=== PATIENT | female | born 1940 | race Hispanic/Latino ===

== ENCOUNTER 2017-12-28 10:24 | Emergency (ER) | payer MEDICARE ==
[~2017-12-28 10:24] MED LIST: GLIP5TAB11 PO; METF-526 PO
[2017-12-28] MEDS ORDERED: ACETAMINOPHEN 325 MG TAB ONE (10:46)
[2017-12-28 11:23] LABS: BASOPHILS % (AUTO) 0.7 % (0.0-5.0); EOSINOPHILS % (AUTO) 0.7 % (0.0-8.0); HEMATOCRIT 39.7 % (36-48); LYMPHOCYTES % (AUTO) 21.7 % (21.0-51.0); MEAN CORPUSCULAR HGB CONC 33.8 g/dL (32.0-36.0); MEAN CORPUSCULAR VOLUME 85.7 fL (79-99); MONOCYTES % (AUTO) 7.6 % (3.0-13.0); NEUTROPHILS % (AUTO) 69.3 % (40.0-77.0); PLATELET COUNT (AUTO) 307 K/uL (130-400); RED BLOOD CELL COUNT(AUTO) 4.64 MIL/uL (4.00-5.50); WHITE BLOOD COUNT (AUTO) 9.2 K/uL (4.8-10.8)
[2017-12-28 11:39] LABS: CREATININE 0.7 mg/dL (0.5-1.5); POTASSIUM 4.7 mmol/L (3.5-5.1)
[2017-12-28 12:29] LABS: APPEARANCE,URINE Clear (CLEAR); BILIRUBIN,URINE Negative (NEGATIVE); COLOR,URINE Yellow (YELLOW); GLUCOSE, URINE (UA) TRACE mg/dL (NEGATIVE); KETONES,URINE Negative (NEGATIVE); LEUKOCYTE ESTERASE ,URINE Large (NEGATIVE); NITRATE,URINE Positive (NEGATIVE); OCCULT BLOOD,URINE Negative (NEGATIVE); PH,URINE 5.5 (5.0-8.0); PROTEIN,URINE Negative (NEGATIVE); UROBILINOGEN,URINE 0.2 mg/dL (0.2-1.0)
[2017-12-28 12:57] LABS: BACTERIA,URINE Many /HPF (None Seen); RBC,URINE 0-1 /HPF (0-1); SQUAMOUS EPITHELIAL CELL,UR Rare /HPF (0-2)
[2017-12-28] MEDS ORDERED: CEFTRIAXONE SODIUM 1 GM ONE (13:58)
[2017-12-28] MEDS ORDERED: SODIUM CHLORIDE 0.9% 50 ML IV ONE (13:59)
[2017-12-28] MEDS ORDERED: HYDROCODONE/ACETAMINOPHEN 5/325 MG TAB ONE (13:59)
== END 2017-12-28 14:36 | disposition home or self-care (01) ==
LOC: EDH 10:24
DX: S16.1XXA Strain of muscle, fascia and tendon at neck level, initial encounter (principal); S00.83XA Contusion of other part of head, initial encounter; N39.0 Urinary tract infection, site not specified; E11.9 Type 2 diabetes mellitus without complications; Z90.710 Acquired absence of both cervix and uterus; Z88.7 Allergy status to serum and vaccine; W18.39XA Other fall on same level, initial encounter; Y93.89 Activity, other specified; Y92.89 Other specified places as the place of occurrence of the external cause; Y99.8 Other external cause status
CPT/HCPCS: 36415; 70450; 72125; 80048; 81001; 85025; 87077; 87088; 87186; 87804 ×2; 96374; 99285; J0696

== ENCOUNTER 2018-08-05 16:45 | Emergency (ER) | payer MEDICARE ==
[2018-08-05 17:41] LABS: BASOPHILS % (AUTO) 0.8 % (0.0-5.0); EOSINOPHILS % (AUTO) 0.9 % (0.0-8.0); HEMATOCRIT 35.1 % (36-48); MEAN CORPUSCULAR HEMOGLOBIN 29.2 pg (27.0-33.0); MEAN CORPUSCULAR HGB CONC 33.4 g/dL (32.0-36.0); MEAN CORPUSCULAR VOLUME 87.5 fL (79-99); MONOCYTES % (AUTO) 9.1 % (3.0-13.0); NEUTROPHILS % (AUTO) 67.2 % (40.0-77.0); PLATELET COUNT (AUTO) 341 K/uL (130-400); RED BLOOD CELL COUNT(AUTO) 4.01 MIL/uL (4.00-5.50); RED CELL DISTRIBUTION WIDTH 13.4 % (11.0-15.5); WHITE BLOOD COUNT (AUTO) 9.2 K/uL (4.8-10.8)
[2018-08-05 18:16] LABS: CREATININE 0.8 mg/dL (0.5-1.5); POTASSIUM 3.7 mmol/L (3.5-5.1)
[2018-08-05] MEDS ORDERED: KETOROLAC TROMETHAMINE 15MG/ML ONE (18:18)
[2018-08-05] MEDS ORDERED: CEFTRIAXONE SODIUM 1 GM ONE (18:18)
[2018-08-05] MEDS ORDERED: ACETAMINOPHEN 325 MG TAB ONE (18:18)
[2018-08-05] MEDS ORDERED: SODIUM CHLORIDE 0.9% 1000ML 1,000 ML IV ONE (18:19)
[2018-08-05 18:21] LABS: ALBUMIN 3.4 g/dL (3.5-5.0); BILIRUBIN,TOTAL 0.2 mg/dL (0.2-1.0); TOTAL PROTEIN, SERUM 7.7 g/dL (6.0-8.3)
[2018-08-05 19:17] LABS: APPEARANCE,URINE SL CLOUDY (CLEAR); BILIRUBIN,URINE NEGATIVE (NEGATIVE); COLOR,URINE YELLOW (YELLOW); GLUCOSE, URINE (UA) 500 mg/dL (NEGATIVE); KETONES,URINE NEGATIVE (NEGATIVE); LEUKOCYTE ESTERASE ,URINE LARGE (NEGATIVE); NITRATE,URINE POSITIVE (NEGATIVE); OCCULT BLOOD,URINE TRACE-INTACT (NEGATIVE); PROTEIN,URINE NEGATIVE (NEGATIVE); UROBILINOGEN,URINE 0.2 mg/dL (0.2-1.0)
[2018-08-05 19:30] LABS: BACTERIA,URINE Few /HPF (None Seen); MUCUS,URINE Few LPF (None Seen); SQUAMOUS EPITHELIAL CELL,UR None Seen /HPF (0-2); WBC,URINE 51-100 /HPF (0-1)
[2018-08-11] MEDS ORDERED: METF-446 PO (00:16)
[2018-08-11] MEDS ORDERED: IBUP-2070 PO (00:16)
[2018-08-11] MEDS ORDERED: LEVO750T46 PO (00:16)
[2018-08-11] MEDS ORDERED: MECL-111 PO (00:16)
[2018-08-11] MEDS ORDERED: LEVO137T2 PO (00:16)
[2018-08-11] MEDS ORDERED: LEVO5TAB13 PO (00:16)
== END 2018-08-05 22:20 | disposition home or self-care (01) ==
LOC: EDH 16:45
DX: N10 Acute pyelonephritis (principal); M54.2 Cervicalgia; G89.29 Other chronic pain; E11.9 Type 2 diabetes mellitus without complications; Z90.710 Acquired absence of both cervix and uterus; Z88.7 Allergy status to serum and vaccine
CPT/HCPCS: 36415; 80053; 81001; 83605 ×2; 85025; 87040 ×2; 87077; 87088; 87186; 93005; 96374; 96375; 99285; J0696; J1885; J7030

== ENCOUNTER 2019-12-30 19:17 | Inpatient (IN) | payer MEDICARE ==
[~2019-12-30] VITALS: Ht 160 cm; Wt 70.8 kg
[~2019-12-30 19:17] MED LIST changes: -GLIP5TAB11 PO; +IBUP-2070 PO; +LEVO137T2 PO; +LEVO5TAB13 PO; +LEVO750T46 PO; +MECL-160 PO; +METF-446 PO; -METF-526 PO
[2019-12-30] MEDS ORDERED: ONDANSETRON HCL 4 MG/2 ML VIAL ONE (19:54)
[2019-12-30 20:22] LABS: BASOPHILS % (AUTO) 0.2 % (0.0-5.0); EOSINOPHILS % (AUTO) 0.1 % (0.0-8.0); HEMATOCRIT 35.9 % (36-48); LYMPHOCYTES % (AUTO) 10.3 % (21.0-51.0); MEAN CORPUSCULAR HEMOGLOBIN 27.5 pg (27.0-33.0); MEAN CORPUSCULAR HGB CONC 32.6 g/dL (32.0-36.0); MEAN CORPUSCULAR VOLUME 84.3 fL (79-99); MONOCYTES % (AUTO) 6.6 % (3.0-13.0); NEUTROPHILS % (AUTO) 82.3 % (40.0-77.0); PLATELET COUNT (AUTO) 318 K/uL (130-400); RED BLOOD CELL COUNT(AUTO) 4.26 MIL/uL (4.00-5.50); RED CELL DISTRIBUTION WIDTH 14.2 % (11.0-15.5); WHITE BLOOD COUNT (AUTO) 15.4 K/uL (4.8-10.8)
[2019-12-30] MEDS ORDERED: CEFTRIAXONE SODIUM 1 GM ONE (20:34)
[2019-12-30] MEDS ORDERED: ACETAMINOPHEN 325 MG TAB ONE (20:35)
[2019-12-30] MEDS ORDERED: SODIUM CHLORIDE 0.9% 1000ML 1,000 ML IV ONE (20:35)
[2019-12-30 20:41] LABS: CREATININE 0.9 mg/dL (0.5-1.5); POTASSIUM 3.7 mmol/L (3.5-5.1)
[2019-12-30 20:45] LABS: PARTIAL THROMBOPLASTIN TIME 26.8 SEC (26.3-35.5); PROTHROMBIN TIME 10.8 SEC (9.6-11.6)
[2019-12-30 20:46] LABS: ALBUMIN 3.8 g/dL (3.5-5.0); BILIRUBIN,TOTAL 0.3 mg/dL (0.2-1.0); CRP QUANTITATIVE 124.2 mg/L (0.00-9.0); TOTAL PROTEIN, SERUM 8.8 g/dL (6.0-8.3)
[2019-12-30 21:06] LABS: APPEARANCE,URINE Clear (CLEAR); BILIRUBIN,URINE Negative (NEGATIVE); COLOR,URINE Yellow (YELLOW); GLUCOSE, URINE (UA) 250 mg/dL (NEGATIVE); KETONES,URINE Trace mg/dL (NEGATIVE); LEUKOCYTE ESTERASE ,URINE Small (NEGATIVE); NITRATE,URINE Negative (NEGATIVE); OCCULT BLOOD,URINE Negative (NEGATIVE); PROTEIN,URINE POS 2+ mg/dL (NEGATIVE); UROBILINOGEN,URINE 0.2 mg/dL (0.2-1.0)
[2019-12-30 21:24] LABS: BACTERIA,URINE Rare /HPF (None Seen); RBC,URINE None Seen /HPF (0-1); SQUAMOUS EPITHELIAL CELL,UR None Seen /HPF (0-2)
[2019-12-30 21:31] LABS: ERYTHROCYTE SEDIMENTATION RATE 38 MM/HR (0-30); FERRITIN 31 ng/mL (15-150)
[2019-12-30] MEDS ORDERED: IOHEXOL-350 75 ML VIAL IV ONE (21:39)
[2019-12-31] MEDS ORDERED: ONDANSETRON HCL 4 MG/2 ML VIAL ONE (00:30)
[2019-12-31] MEDS ORDERED: ACETAMINOPHEN 325 MG TAB ONE ×3 (00:30→17:43)
[2019-12-31] MEDS ORDERED: ONDANSETRON HCL 4 MG/2 ML VIAL IV PRN (01:00)
[2019-12-31] MEDS ORDERED: SODIUM CHLORIDE 0.9% 1000ML 1,000 ML IV SCH (01:00)
[2019-12-31] MEDS: ZOSYN 3.375GM+NS 50ML 50 ML IV SCH ×3 (01:00→17:00)
[2019-12-31] MEDS ORDERED: MORPHINE SULFATE 2 MG/ML 1ML SYG IV PRN (01:00)
[2019-12-31] MEDS ORDERED: ACETAMINOPHEN 325 MG TAB PO PRN ×2 (01:00)
[2019-12-31] MEDS ORDERED: ZOSYN 3.375GM+NS 50ML 50 ML IV ONE ×3 (01:32→17:30)
[2019-12-31] MEDS ORDERED: PHARMACY COMMUNICATION MISC SCH (01:45)
[2019-12-31] MEDS ORDERED: ENOXAPARIN SODIUM 40 MG/0.4 ML SYRINGE SQ ONE (07:38)
[2019-12-31] MEDS ORDERED: BENZONATATE 100 MG CAPSULE PO ONE ×3 (07:38→19:57)
[2019-12-31] MEDS ORDERED: FAMOTIDINE/PF 20 MG/2 ML VIAL IV ONE ×2 (07:39→19:58)
[2019-12-31] MEDS: ENOXAPARIN SODIUM 40 MG/0.4 ML SYRINGE SQ SCH (09:00)
[2019-12-31] MEDS: FAMOTIDINE/PF 20 MG/2 ML VIAL IV SCH ×2 (09:00→21:00)
[2019-12-31] MEDS: BENZONATATE 100 MG CAPSULE PO SCH ×3 (09:00→21:00)
[2019-12-31] MEDS: FLUTICASONE PROPIONATE 50MCG/SPRAY 16 GM BOTTLE EN SCH (13:15)
[2020-01-01] MEDS: ZOSYN 3.375GM+NS 50ML 50 ML IV SCH ×3 (01:00→17:00)
[2020-01-01] MEDS ORDERED: ACETAMINOPHEN 325 MG TAB ONE ×2 (01:23→21:58)
[2020-01-01 03:30] LABS: BASOPHILS % (AUTO) 0.3 % (0.0-5.0); EOSINOPHILS % (AUTO) 0.5 % (0.0-8.0); HEMATOCRIT 30.7 % (36-48); LYMPHOCYTES % (AUTO) 16.3 % (21.0-51.0); MEAN CORPUSCULAR HEMOGLOBIN 27.4 pg (27.0-33.0); MEAN CORPUSCULAR HGB CONC 31.9 g/dL (32.0-36.0); MEAN CORPUSCULAR VOLUME 85.8 fL (79-99); MONOCYTES % (AUTO) 6.2 % (3.0-13.0); NEUTROPHILS % (AUTO) 76.2 % (40.0-77.0); PLATELET COUNT (AUTO) 223 K/uL (130-400); RED BLOOD CELL COUNT(AUTO) 3.58 MIL/uL (4.00-5.50); RED CELL DISTRIBUTION WIDTH 14.6 % (11.0-15.5); WHITE BLOOD COUNT (AUTO) 13.3 K/uL (4.8-10.8)
[2020-01-01 04:03] LABS: ALBUMIN 2.9 g/dL (3.5-5.0); BILIRUBIN,TOTAL 0.2 mg/dL (0.2-1.0); CREATININE 0.7 mg/dL (0.5-1.5); POTASSIUM 3.6 mmol/L (3.5-5.1); THYROID STIMULATING HORMONE 4.97 uIU/mL (0.36-3.74); TOTAL PROTEIN, SERUM 6.6 g/dL (6.0-8.3)
[2020-01-01 04:13] LABS: CRP QUANTITATIVE 234.2 mg/L (0.00-9.0)
[2020-01-01] MEDS ORDERED: ZOSYN 3.375GM+NS 50ML 50 ML IV ONE ×3 (04:16→20:19)
[2020-01-01] MEDS: FAMOTIDINE/PF 20 MG/2 ML VIAL IV SCH ×2 (09:00→21:00)
[2020-01-01] MEDS: ENOXAPARIN SODIUM 40 MG/0.4 ML SYRINGE SQ SCH (09:00)
[2020-01-01] MEDS: BENZONATATE 100 MG CAPSULE PO SCH ×3 (09:00→21:00)
[2020-01-01] MEDS ORDERED: BENZONATATE 100 MG CAPSULE PO ONE ×2 (10:46→20:18)
[2020-01-01] MEDS ORDERED: ENOXAPARIN SODIUM 40 MG/0.4 ML SYRINGE SQ ONE (10:47)
[2020-01-01] MEDS ORDERED: FAMOTIDINE/PF 20 MG/2 ML VIAL IV ONE ×2 (10:47→20:19)
[2020-01-01] MEDS: FLUTICASONE PROPIONATE 50MCG/SPRAY 16 GM BOTTLE EN SCH (13:15)
--- NOTE | 2020-01-01 14:55 | NUR ---
JOHNNY RUANO Spoke to patient's son (Jules Pablo [phone]) via phone. As per Jules, patient lives alone at address listed on file, and no DME or services. Jules states patient's daughter (Anita Pablo [phone]) is to transport her home upon discharge. CM to follow up. Addendum: 01/01/20 at 1458 by LASHAY FOWLER Amended: Links added.
[2020-01-01] MEDS ORDERED: INSULIN HUMULIN R 100 UNIT/ML 3ML ONE (20:41)
[2020-01-02] MEDS: ZOSYN 3.375GM+NS 50ML 50 ML IV SCH (01:00)
[2020-01-02] MEDS ORDERED: ZOSYN 3.375GM+NS 50ML 50 ML IV ONE (03:27)
[2020-01-02] MEDS ORDERED: ACETAMINOPHEN 325 MG TAB ONE (04:30)
[2020-01-02 04:41] LABS: BASOPHILS % (AUTO) 0.2 % (0.0-5.0); EOSINOPHILS % (AUTO) 0.6 % (0.0-8.0); HEMATOCRIT 33.3 % (36-48); LYMPHOCYTES % (AUTO) 15.4 % (21.0-51.0); MEAN CORPUSCULAR HGB CONC 31.8 g/dL (32.0-36.0); MEAN CORPUSCULAR VOLUME 84.9 fL (79-99); MONOCYTES % (AUTO) 7.6 % (3.0-13.0); NEUTROPHILS % (AUTO) 75.9 % (40.0-77.0); PLATELET COUNT (AUTO) 298 K/uL (130-400); RED BLOOD CELL COUNT(AUTO) 3.92 MIL/uL (4.00-5.50); RED CELL DISTRIBUTION WIDTH 14.5 % (11.0-15.5); WHITE BLOOD COUNT (AUTO) 9.4 K/uL (4.8-10.8)
[2020-01-02 04:58] LABS: BILIRUBIN,TOTAL 0.2 mg/dL (0.2-1.0); CREATININE 0.8 mg/dL (0.5-1.5); POTASSIUM 3.7 mmol/L (3.5-5.1); TOTAL PROTEIN, SERUM 7.1 g/dL (6.0-8.3)
[2020-01-02] MEDS ORDERED: ENOXAPARIN SODIUM 40 MG/0.4 ML SYRINGE SQ ONE (08:51)
[2020-01-02] MEDS ORDERED: FAMOTIDINE/PF 20 MG/2 ML VIAL IV ONE (08:52)
[2020-01-02] MEDS: BENZONATATE 100 MG CAPSULE PO SCH ×2 (09:00→13:31)
[2020-01-02] MEDS: FAMOTIDINE/PF 20 MG/2 ML VIAL IV SCH (09:00)
[2020-01-02] MEDS: ENOXAPARIN SODIUM 40 MG/0.4 ML SYRINGE SQ SCH (09:00)
[2020-01-02] MEDS ORDERED: LEVOTHYROXINE 112 MCG TABLET PO SCH (09:23)
[2020-01-02] MEDS ORDERED: LEVOTHYROXINE 25 MCG TABLET PO SCH (09:25)
[2020-01-02 12:00] VITALS: BP 150/64
[2020-01-02] MEDS ORDERED: ZOSYN 3.375GM+NS 50ML 50 ML IV SCH (13:00)
[2020-01-02] MEDS: FLUTICASONE PROPIONATE 50MCG/SPRAY 16 GM BOTTLE EN SCH (13:15)
[2020-01-02] MEDS: INSULIN HUMULIN R 100 UNIT/ML 3ML SQ SCH ×2 (13:38→17:26)
[2020-01-02 16:00] VITALS: BP_SYST 131; BP_SYST 139; BP_DIAS 58; BP_DIAS 69
--- NOTE | 2020-01-02 16:46 | NUR ---
DISCHARGE WENT OVER DISCHARGE INSTRUCTIONS WITH PATIENT..PROVIDED HER EDUCATION ABOUT UTI'S PRINTED..PT PROVIDED WITH PRESCRIPTION THAT SHE WILL FILL AT HER LOCAL PREFERRD PHARMACY...ANSWERED ALL QUESTIONS AND CONCERNS..D/C PT'S IV..
== END 2020-01-02 17:30 | disposition home or self-care (01) | DRG 872 ==
LOC: EDH 19:17 → EDHIP 12-31 00:49 → 4AH 01-02 11:22
PROVIDERS: ADMIT Internal Medicine; ATTEND Internal Medicine
DX: A41.9 Sepsis, unspecified organism (principal); N30.00 Acute cystitis without hematuria; E87.1 Hypo-osmolality and hyponatremia; Z20.828 Contact with and (suspected) exposure to other viral communicable diseases; K76.0 Fatty (change of) liver, not elsewhere classified; I10 Essential (primary) hypertension; E78.5 Hyperlipidemia, unspecified; E11.9 Type 2 diabetes mellitus without complications; E03.9 Hypothyroidism, unspecified; E86.1 Hypovolemia; E78.00 Pure hypercholesterolemia, unspecified; R05 Cough; Z82.5 Family history of asthma and other chronic lower respiratory diseases; Z82.49 Family history of ischemic heart disease and other diseases of the circulatory system; Z83.3 Family history of diabetes mellitus; Z82.0 Family history of epilepsy and other diseases of the nervous system; Z82.3 Family history of stroke; Z80.3 Family history of malignant neoplasm of breast; Z79.899 Other long term (current) drug therapy; Z79.84 Long term (current) use of oral hypoglycemic drugs; Z88.7 Allergy status to serum and vaccine
CPT/HCPCS: 36415; 71045; 71275; 80053; 81001; 82550; 82728; 82948; 83605; 84145; 84439; 84443; 84484; 85025; 85378; 85610; 85651; 85730; 86140; 87040; 87088; 87426; 93005; 93970; G0378; J0696; J1650; J1815; J2405; J2543; J3490; J7030; Q9967; U0003

== ENCOUNTER 2024-08-03 09:39 | Emergency (ER) | payer MEDICARE ==
[~2024-08-03] VITALS: Ht 160 cm; Wt 66.7 kg
[~2024-08-03 09:39] MED LIST changes: -IBUP-2070 PO; -LEVO750T46 PO; -MECL-160 PO; +MECL-302 PO
--- NOTE | 2024-08-03 11:39 | HMCIMG ---
Exam Type: CT HEAD/BRAIN W/O CONTRAST Clinical Information: neck pain, headaches, nausea, dizziness Comparison: None CT Dose Index (CTDI): 57.33 mGy Dose Length Product (DLP): 956.79 total mGy-cm Findings: The examination shows atrophy. There is low attenuation throughout the periventricular white matter locations, consistent with chronic small vessel ischemic changes. No acute intra- or extra-axial fluid collections are seen. There is no evidence of acute or chronic hemorrhage. There is no mass effect or shift of midline structures. There are no areas to suggest acute infarct. The skull windows show no significant abnormalities. IMPRESSION: 1. ATROPHY AND CHRONIC SMALL VESSEL ISCHEMIC CHANGES. This study was performed using dose reduction techniques to include automated exposure control and/or adjustment of the mA and/or kV according to patient size.
--- NOTE | 2024-08-03 11:41 | HMCIMG ---
Exam Type: CT cervical spine without contrast Clinical Information: neck pain, headaches, nausea, dizziness Comparison: None Technique: Spiral axial images were performed from the base of the skull down to the thoracic vertebral bodies. Both sagittal and coronal reconstructions were performed. CT Dose Index (CTDI): 12.85 mGy Dose Length Product (DLP): 282.6 total Findings: There are degenerative changes. 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 There is reversal of normal cervical lordosis consistent with degeneration and spasm. There are no fractures. There is facet hypertrophy at multiple levels. IMPRESSION: Degenerative changes as noted. No acute pathology. No fractures seen. This study was performed using dose reduction techniques to include automated exposure control and/or adjustment of the mA and/or kV according to patient size.
[2024-08-03] MEDS: ketOROlac 15MG/ML VIAL (15MG/ML) IM ONE (12:28)
[2024-08-03] MEDS: ORPHENADRINE 60MG/2ML IM ONE (12:28)
[2024-08-03] MEDS ORDERED: KETO10TA2 PO (12:59)
[2024-08-03] MEDS ORDERED: METH-662 PO (12:59)
--- NOTE | 2024-08-03 13:00 | ERN ---
General Chief Complaint: Neck Pain Stated Complaint: NECK PAIN Time Seen by MD: 09:55 Time Seen by Midlevel: 09:55 Source: patient History of Present Illness Initial Comments Patient is an 83-year-old female presenting to the emergency department with neck pain. Patient states she slept wrong and woke up with neck pain that is reproducible with movement. Allergies: Coded Allergies: Tetanus Vaccines & Toxoid (Unverified Allergy, Unknown, 05/06/14) Home Meds Reported Medications Levocetirizine Dihydrochloride (Levocetirizine Dihydrochloride) 5 Mg Tablet, 5 M G PO DAILY PRN for NASAL CONGESTION, TAB 08/11/18 Meclizine HCl (Meclizine HCl) 25 Mg Tablet, 25 MG PO TID PRN for DIZZINESS, TAB 08/11/18 Levothyroxine Sodium (Levothyroxine Sodium) 137 Mcg Tablet, 137 MCG PO DAILY, TAB 08/11/18 Metformin HCl (Metformin HCl) 1,000 Mg Tablet, 1000 MG PO BIDMEALS, TAB 08/11/18 Past Medical History Past Medical History: Diabetes-Type II, High Cholesterol, Hypertension Medical History Other: [employer] Past Surgical History: Other Surgical History Other: PAICD ROS Dictation CONSTITUTIONAL: Negative except for HPI HEAD/FACE: Negative except for HPI EENT: Negative except for HPI RESPIRATORY: Negative except for HPI GASTROINTESTINAL/ABDOMINAL: Negative except for HPI GENITOURINARY: Negative except for HPI MUSCULOSKELETAL: Negative except for HPI INTEGUMENTARY: Negative except for HPI NEUROLOGICAL/PSYCH: Negative except for HPI HEMATOLOGIC/LYMPHATIC: Negative except for HPI All Systems Negative, Except as noted above. 13 point review of systems assessed and all negative except for above. Physical Exam Physical Exam Dictation Vital Signs reviewed General Appearance: Alert, oriented x 3, no acute distress, well developed, nourished. Head and Face: non-traumatic. Eyes: PERRL, pink conjunctivas, eyelid no trauma, anterior chamber with arcus senilis. Ears: Pinnas intact and no signs of trauma or erythema ear canals clear and no discharge TM no erythema Nose: No discharge, no bleeding. Oropharynx: Mouth normal, tongue pink, pharynx clear,no erythema, tonsils no exudates, no abscesses noted, mucous membrane moist Neck: Supple, paraspinal muscle tenderness, no midline tenderness, no thyromegaly, no masses, no JVD, no bruits Breast:Deferred Chest:No tenderness, no crepitus, no paradoxical movement, no retractions Lungs:Clear, well-ventilated, symmetric, no rales, no wheezing, no rhonchi, no stridor, good breath sounds bilaterally Heart: Regular rate, regular rhythm, no murmur, no gallops Vascular: no peripheral edema, Abdomen: Soft, positive bowel sounds, nondistended, no guarding, nontender, no rebound, no masses no hepatomegaly, no splenomegaly, no Hollingsworth's sign, no hernias. Rectal: Deferred Genital: Deferred Neurological: Normal speech, motor function intact, sensory function intact Musculoskeletal: Neck nontender, full range of motion, back nontender, full r jae of motion, Extremities: nontender, full range of motion Skin: Color pink, dry, no turgor, no rash, no lacerations, no abrasions, no contusions. Lymphatic: Deferred MDM MDM: Differential diagnosis: Intracranial bleed, cervical strain, There are no social concerns with this patient. Prescription drug management Prescriptions will include: Toradol and Robaxin Medical management and examination interpretation discussions were had by me with other qualified healthcare professionals as indicated for the patient's care. ED Course Orders Procedure Category Date Status Time Ct Head/Brain W/O CT 08/03/24 Resulted Contrast 10:56 Ct Cervical Spine W/O CT 08/03/24 Resulted Contrast 10:56 Ketorolac PHA 08/03/24 Complete Tromethamine 15mg/Ml 12:00 Orphenadrine Citrate PHA 08/03/24 Complete (Norflex) 12:00 Current Medications Medications (Trade) Dose Ordered Sig/Angelic Route PRN Reason Start Time Stop Time Status Last Admin Dose Admin Ketorolac Tromethamine (toRADol) 15 mg ONCE ONCE IM 08/03/24 12:00 08/03/24 12:01 DC 08/03/24 12:28 Orphenadrine Citrate (Norflex) 60 mg ONCE ONCE IM 08/03/24 12:00 08/03/24 12:01 DC 08/03/24 12:28 Vital Signs Date Time Temp Pulse Resp B/P (MAP) Pulse Ox O2 Delivery O2 Flow Rate FiO2 08/03/24 11:20 99.1 105 16 146/87 0 Room Air* 0 21 08/03/24 09:43 99.1 105 16 146/87 0 Room Air 0 08/03/24 09:43 99.1 105 16 146/87 95 Room Air* 0 21 DX & DISP Disposition: Discharge Departure Impression: Primary Impression: Cervical strain Condition: Stable Scripts Methocarbamol (Robaxin) 750 Mg Tab 1 TAB PO BID for 7 Days, #14 TAB 0 Refills Prov: ALFA MORRISSEY 08/03/24 Ketorolac Tromethamine (Ketorolac Tromethamine) 10 Mg Tablet 1 TAB PO BID for pain for 4 Days, #8 TAB 0 Refills Prov: ALFA MORRISSEY 08/03/24 Referrals: MARTHA MITCHELL MD (PCP) Time of Disposition: 12:58 I have reviewed the case, and I agree with, Diagnosis and Plan I performed the substantive portion of the visit. I have reviewed and personally made and approve the management plan that is documented in the note by myself or the AUDRA. I acknowledge for responsibility for the patient's management plan. ALFA MORRISSEY August 03, 2024 13:00
[2024-08-03 13:08] VITALS: BP 135/82; PULSE 92; RESP 16; TEMP 98.6; O2SAT 0
== END 2024-08-03 13:09 | disposition home or self-care (01) ==
LOC: EDH 09:39
DX: S16.1XXA Strain of muscle, fascia and tendon at neck level, initial encounter (principal); E11.9 Type 2 diabetes mellitus without complications; E78.00 Pure hypercholesterolemia, unspecified; I10 Essential (primary) hypertension; Z79.890 Hormone replacement therapy; Z88.7 Allergy status to serum and vaccine; X58.XXXA Exposure to other specified factors, initial encounter; Y93.89 Activity, other specified; Y92.89 Other specified places as the place of occurrence of the external cause; Y99.8 Other external cause status
CPT/HCPCS: 99285; 70450; 72125; 96372 ×2; J1885; J2360